=== PATIENT | female | born 1980 | race Caucasian/White ===

== ENCOUNTER 2025-04-29 06:30 | Day surgery (SDC) | payer OTHER, SELFPAY ==
[2025-04-14 10:27] VITALS: BMI 30.6
--- NOTE | 2025-04-29 | PATH_ITS ---
[facility] Accession Number: [id number] No. of containers..02 Tissue . 01 Material submitted: . PART A: endocervix - ECC PART B: endometrium - ENDOMETRIAL CURRETINGS . 01 Diagnosis: A. ENDOCERVIX: Fragments of endocervical mucosa with no significant pathologic alterations. No dysplasia or malignancy. . B. ENDOMETRIUM: Dyssynchronous endometrium. Associated breakdown changes. Fragments of unremarkable ectocervical and endocervical mucosa. No significant cytologic atypia and no malignancy. MRV 05/12/2025 1334 Local . 01 Electronically signed: . Lynnette Andrews MD, Pathologist NPI- [id number] . 01 Gross description: . A. Received in formalin, labeled with two identifiers and ECC, are multiple cartagena soft tissue fragments admixed with mucohemorrhagic material received on a Telfa pad aggregating to 3.5 x 2.5 x 0.5 cm. Filtered and submitted entirely in cassettes A1-A2. B. Received in formalin, labeled with two identifiers and endometrial curettings, are multiple cartagena soft tissue fragments admixed with mucohemorrhagic material aggregating to 4.5 x 3.0 x 0.7 cm. Filtered and submitted entirely in cassettes B1-B3. ([id number]) /FRR 05/05/2025 1646 Local . 01 Pathologist provided ICD-10: N93.9, N92.4 . 01 CPT . 730582, 103405 Specimen Comment: A courtesy copy of this report has been sent to [phone] Performed at: [address] [facility], [place], [place] [id number] MD Franki Hood MD Phone: [phone]
--- NOTE | 2025-04-29 07:06 | PM.PREOP ---
Pre-operative Note COVID-19 COVID-19 status: Not tested Interval Note History & Physical reviewed/Exam performed by Physician: Yes Changes to H&P: No
--- NOTE | 2025-04-29 07:20 | SUR.OPER ---
Lithotomy on padded OR bed, head on pillow, arms secured on padded arm boards at <90 degrees abduction. Legs secured in padded yellow fins stirrups. ALL POSITIONING APPROVED AND DIRECTED BY SURGEON PRIOR TO START OF PROCEDURE.
[2025-04-29] MEDS: SCOPOLAMINE 1 PATCH TOP (07:21)
[2025-04-29] MEDS: LACTATED RINGERS 1,000 ML 42 ML IV (07:22)
[2025-04-29] MEDS: ACETAMINOPHEN IV 1,000 MG/100 ML VIAL 400 MG IV (07:22)
[2025-04-29 07:25] VITALS: BP 110/78; PULSE 75; RESP 18; TEMP 36.3; O2SAT 100
--- NOTE | 2025-04-29 08:29 | PM.GYNOP.1 ---
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 Patient experienced menarche at age 10 and up until about 2020 her cycles were regular, predictable, and minimally uncomfortable. They have since become irregular with frequent episodes of light intermenstrual spotting. Her cycles now are irregular with most intervals more than 30-35 day but patient states she has gone as long as 120 days between menses. Over the last 4 months however the patient has started to have severe pain with her menses which is deep in the pelvis, intense, occasionally sharp, and has worsened to the point where it is highly disruptive to her personal life as well as her work. Pelvic ultrasound was performed at [facility] on 11/12/2024 which showed that the uterus is anteverted and normal in size measuring 9.0 x 3.7 x 6.0 cm. The myometrium is described as homogeneous. The endometrium measures 15.8 mm in combined thickness. The right ovary measures 1.6 x 1.3 x 2.3 cm with a calculated ovarian volume of 2.5 cc. The left ovary measures 2.4 x 1.8 x 2.2 cm with a calculated volume of 5.0 cc the ovaries have a normal sonographic appearance. Greater than 12 follicles can be seen in each ovary. There were no adnexal masses seen. No cystic lesions measuring greater than 3 cm are noted. There was no pathologic free abdominal or pelvic fluid. Pap 09/11/2024 is normal. All prior Paps are also normal. Associated with the symptoms mentioned previously, are mild vasomotor symptoms and the patient does have urinary frequency with occasional urgency but no urge or stress incontinence. The patient's pelvic pressure and discomfort have her concerned that she may have pelvic organ prolapse which her mother experienced. We had an extended discussion regarding potential causes for her menorrhagia and dysmenorrhea. Her ultrasound is relatively unremarkable but examination shows that the uterus itself which is acutely anteflexed, is the source of her pelvic pain/discomfort. It no doubt as the source of her dysmenorrhea although other sources within the pelvis such as endometriosis can not be ruled out. Would 1st recommend endometrial sampling to rule out occult hyperplasia/neoplasia but once those are ruled out we can discuss options for dealing with her pain and dysmenorrhea. IUD insertion would be a possibility but no assurance can be given that it will resolve either her bleeding or her dysmenorrhea. We also discussed the possibility of hysterectomy as a curative solution but understandably that would be a last resort for the patient. She will return for endometrial sampling in 2 weeks and we will have further discussion at that time as to various therapeutic options available to her and take next steps in determining how she wishes to proceed going forward. We also discussed use of prescription strength naproxen for a day or 2 prior to her expected onset of menses which may improve her dysmenorrhea significantly and have some impact on her menorrhagia as well. She is due to start her next period in a few days and can assess any impact the naproxen may have had on her dysmenorrhea with the upcomingmenses at that time. Subsequent endometrial sampling demonstrated changes consistent with progestin effect. There was no neoplastic, atypical, hyperplastic, or malignant changes noted. After considering all options, the patient has decided to move forward with hysteroscopy and possible biopsies with dilation and curettage of the uterus. She presents today for her scheduled surgery. Surgeon: Tripp Carlisle Anesthesia Type: General Operative Notes Findings: The endometrial cavity is normal in size and shape. There were no focal lesions noted within the endometrium or in the submucosal space. The endometrium itself is somewhat shaggy in appearance but otherwise unremarkable. The endocervical canal is similarly unremarkable. Closure Type: not applicable Specimen(s): endometrial curettings and other (Endocervical curettings) Applied: none Estimated blood loss (mL): 5 Blood products transfused: none Procedure in detail: With the patient under general LMA in the modified dorsal lithotomy position, the perineum, vagina, and lower abdomen were prepped and draped in the usual fashion for hysteroscopy with endometrial ablation. A pre-surgical safety time-out was then taken in accordance with [facility] Main OR protocols. A bivalve speculum was inserted in the vagina and the cervix visualized. The anterior lip of the cervix was grasped with a single-tooth tenaculum and the endocervical canal was then dilated to 6 mm diameter. Hysteroscope was placed through the endocervical canal into the endometrial cavity and the cavity was visualized. There were no localized abnormalities within the endometrial cavity and the endometrium itself was unremarkable. Both tubal ostia were visualized. The hysteroscope was then withdrawn and a fractional dilation and curettage was accomplished with separate pathologic specimen submitted for the endometrial and endocervical curettings. The tenaculum was then removed from the anterior lip of the cervix and no bleeding was encountered. The speculum was then removed from the vagina and the patient awakened from anesthesia. She was then transferred to the PACU for a period of observation and recovery having tolerated the procedure well. Complications: none Post-operative Condition: stable Disposition: PACU Plan for aftercare: Routine post-op care.
[2025-04-29 08:38] VITALS: BP 120/74; PULSE 78; RESP 16; TEMP 36.2; O2SAT 98
[2025-04-29 08:40] VITALS: BP 104/72; PULSE 64; RESP 16; TEMP 36.2; O2SAT 100
[2025-04-29 08:45] VITALS: BP 120/74; PULSE 78; RESP 16; TEMP 36.2; O2SAT 98
[2025-04-29 08:53] VITALS: BP 124/74; PULSE 74; RESP 16
== END 2025-04-29 09:00 | disposition home or self-care (01) ==
LOC: OR 06:31
PROVIDERS: Referring Provider Obstetrics & Gynecology; Visit Provider Obstetrics & Gynecology
PROC: 0UDB8ZZ Extraction of Endometrium, Via Natural or Artificial Opening Endoscopic (ICD-10-PCS; CPT 58558; principal; 2025-04-29 07:45)
DX: N92.4 Excessive bleeding in the premenopausal period (principal); N94.6 Dysmenorrhea, unspecified; R35.0 Frequency of micturition; R39.15 Urgency of urination
CPT/HCPCS: 58558; J0131; J1100; J1885; J2250; J2704; J3010; J7120